=== PATIENT | female | born 1935 | race Caucasian/White ===

== ENCOUNTER 2018-08-15 09:15 | Inpatient (IN) | payer MEDICARE, OTHER ==
[~2018-08-15] VITALS: Ht 154.9 cm; Wt 71.7 kg
[2018-08-15] MEDS ORDERED: aspirin 81mg tab.chew PO ONE (09:45)
[2018-08-15 10:13] LABS: BASOPHILS # (AUTO) 0.1 X10'3 (0-0.2); BASOPHILS % (AUTO) 0.9 % (0-1); EOSINOPHILS # (AUTO) 0.2 X10'3 (0-0.9); EOSINOPHILS % (AUTO) 2.2 % (0-6); HEMOGLOBIN 13.5 g/dl (12.0-16.0); LYMPHOCYTES # (AUTO) 2.5 X10'3 (1.1-4.8); LYMPHOCYTES % (AUTO) 36.6 % (21-51); MEAN CORPUSCULAR HGB CONC 33.7 g/dL (33.0-36.5); MEAN PLATELET VOLUME 8.5 FL (7.4-10.4); MONOCYTES # (AUTO) 0.4 X10'3 (0-0.9); MONOCYTES % (AUTO) 6.4 % (2-12); NEUTROPHILS # (AUTO) 3.8 X10'3 (1.8-7.7); NEUTROPHILS % (AUTO) 53.9 % (42-75); PLATELET COUNT 311 X10'3 (140-440); RED BLOOD COUNT 4.49 X10'6 (4.20-5.60); RED CELL DISTRIBUTION WIDTH 14.7 % (11.5-14.5)
[2018-08-15 10:25] LABS: ALANINE AMINOTRANSFERASE 21 U/L (12-78); ALBUMIN 3.8 G/DL (3.4-5.0); ALBUMIN/GLOBULIN RATIO 0.8 (1.1-1.5); ALKALINE PHOSPHATASE 96 IU/L (46-116); ANION GAP 7 (8-16); BILIRUBIN,TOTAL 0.4 MG/DL (0.1-1.0); BLOOD UREA NITROGEN 10 MG/DL (7-18); BUN/CREATININE RATIO 17.5 (6.6-38.0); CALCIUM 9.5 MG/DL (8.5-10.1); CHLORIDE 106 MMOL/L (99-107); CREATININE 0.57 MG/DL (0.40-0.90); GLUCOSE 97 MG/DL (70-104); SODIUM 140 MMOL/L (135-145); TOTAL CARBON DIOXIDE 26.9 MMOL/L (24-32); TOTAL PROTEIN 8.3 G/DL (6.4-8.2); eGFR > 90 ML/MIN
[2018-08-15 10:28] LABS: ASPARTATE AMINO TRANSFERASE 20 U/L (10-37); POTASSIUM 4.1 MMOL/L (3.5-5.1)
[2018-08-15 10:31] LABS: MAGNESIUM 2.1 MG/DL (1.5-2.4)
[2018-08-15] MEDS ORDERED: diltiazem 5mg/ml 5ml inj. IV ONE ×2 (11:10→11:40)
--- NOTE | 2018-08-15 13:38 | NUR ---
called pharmacy spoke to Sammie re: Shad bailon
[2018-08-15] MEDS ORDERED: NAPR-996 PO (13:54)
[2018-08-15] MEDS ORDERED: ASPI-611 PO (13:54)
[2018-08-15] MEDS ORDERED: B CO1TAB7 PO (13:54)
[2018-08-15] MEDS ORDERED: FAMO20TA8 PO (13:54)
[2018-08-15] MEDS ORDERED: AMLO5TAB PO (13:54)
[2018-08-15] MEDS ORDERED: OXYB5TAB11 PO (13:54)
[2018-08-15] MEDS ORDERED: PRAV40TA3 PO (13:54)
[2018-08-15] MEDS ORDERED: LEVO25TA7 PO (13:54)
[2018-08-15] MEDS: diltiazem-D5W 125mg/125ml 125 ML IV SCH ×2 (13:56→15:14)
[2018-08-15] MEDS ORDERED: potassium Cl 40MEQ/NS 500ml 500 ML IV PRN ×2 (14:25)
[2018-08-15] MEDS ORDERED: ondansetron/PF 4mg/2ml inj IV PRN (14:25)
[2018-08-15] MEDS ORDERED: magnesium 4gm in 100ml NS 100 ML IV PRN (14:25)
[2018-08-15] MEDS ORDERED: magnesium Cl slow-release 64mg tablet PO PRN (14:25)
[2018-08-15] MEDS ORDERED: HYDROcodone/acetaminophen 5mg/325mg tablet PO PRN (14:25)
[2018-08-15] MEDS ORDERED: diltiazem-D5W 125mg/125ml 125 ML IV SCH ×2 (14:25→14:36)
[2018-08-15] MEDS ORDERED: acetaminophen 325mg tablet PO PRN ×2 (14:25)
[2018-08-15] MEDS ORDERED: mag hydrox/Alum hydrox/simeth 30ml oral suspension PO PRN (14:25)
[2018-08-15] MEDS ORDERED: magnesium 2GM in 50ml NS 50 ML IV PRN (14:25)
[2018-08-15] MEDS ORDERED: potassium Cl 20 mEq SR tablet PO PRN ×2 (14:25)
[2018-08-15] MEDS ORDERED: morphine 2 MG/ML inj. syringe IV PRN (14:25)
[2018-08-15] MEDS ORDERED: aminophylline 250mg/10ml inj. IV PRN (14:40)
[2018-08-15] MEDS ORDERED: metoprolol tartrate 1mg/ml inj IV PRN (14:40)
[2018-08-15] MEDS ORDERED: regadenoson 0.4mg/5ml syringe IV PRN (14:40)
[2018-08-15] MEDS ORDERED: nitroGLYCERIN 0.4mg SUBLingual tab SL PRN (14:40)
[2018-08-15] MEDS: normal saline 1000ml 1,000 ML IV SCH (15:15)
--- NOTE | 2018-08-15 15:53 | NUR ---
received pt report from Bryanna JARRETT; all questions answered.
[2018-08-15 16:10] VITALS: BP 106/69
[2018-08-15 16:24] LABS: CHOLESTEROL 134 MG/DL (0-200); HDL CHOLESTEROL 45 MG/DL (35-60); LDL CHOLESTEROL 78 MG/DL (50-100); TRIGLYCERIDES 83 MG/DL (20-135)
[2018-08-15 17:00] VITALS: BP 110/80
[2018-08-15] MEDS ORDERED: sotalol 80mg tablet PO STA (17:44)
[2018-08-15 18:00] VITALS: BP_SYST 106; BP_SYST 108; BP_DIAS 83
--- NOTE | 2018-08-15 18:06 | NUR ---
pt arrived to floor via gurney and ambulated to bed one person assist. VSS. pt oriented to room and call light.
--- NOTE | 2018-08-15 18:10 | NUR ---
Patient in room PCU 3024. I have received report from Mak JARRETT and had the opportunity to ask questions and assume patient care.
--- NOTE | 2018-08-15 18:21 | NUR ---
Problems reprioritized. Patient report given, questions answered & plan of care reviewed with Sergey JARRETT.
[2018-08-15] MEDS: apixaban 5mg tablet PO SCH (19:34)
[2018-08-15] MEDS: docusate sod 100mg capsule PO SCH (19:34)
[2018-08-15] MEDS: sotalol 80mg tablet PO SCH (19:34)
[2018-08-15] MEDS: heparin, porcine 5000 units/ml vial SQ SCH (20:00)
[2018-08-15] MEDS ORDERED: temazepam 15mg capsule PO PRN (21:00)
[2018-08-15 23:00] VITALS: BP 101/56
[2018-08-16] VITALS (14 sets, daily range): BP systolic 76–127; BP diastolic 40–68
[2018-08-16 05:56] LABS: BASOPHILS # (AUTO) 0.1 X10'3 (0-0.2); BASOPHILS % (AUTO) 0.7 % (0-1); EOSINOPHILS # (AUTO) 0.2 X10'3 (0-0.9); EOSINOPHILS % (AUTO) 2.5 % (0-6); HEMATOCRIT 37.4 % (35.0-45.0); HEMOGLOBIN 12.4 g/dl (12.0-16.0); MEAN CORPUSCULAR HEMOGLOBIN 29.5 PG (27.0-31.0); MEAN CORPUSCULAR HGB CONC 33.2 g/dL (33.0-36.5); MEAN CORPUSCULAR VOLUME 88.7 FL (78-98); MEAN PLATELET VOLUME 8.6 FL (7.4-10.4); MONOCYTES # (AUTO) 0.7 X10'3 (0-0.9); MONOCYTES % (AUTO) 8.5 % (2-12); NEUTROPHILS # (AUTO) 3.8 X10'3 (1.8-7.7); NEUTROPHILS % (AUTO) 49.3 % (42-75); PLATELET COUNT 303 X10'3 (140-440); RED BLOOD COUNT 4.22 X10'6 (4.20-5.60); RED CELL DISTRIBUTION WIDTH 14.1 % (11.5-14.5); WHITE BLOOD COUNT 7.7 X10'3 (4.5-11.0)
[2018-08-16 05:59] LABS: ALBUMIN 3.1 G/DL (3.4-5.0); ANION GAP 9 (8-16); BLOOD UREA NITROGEN 11 MG/DL (7-18); BUN/CREATININE RATIO 16.2 (6.6-38.0); CALCIUM 8.9 MG/DL (8.5-10.1); CHLORIDE 107 MMOL/L (99-107); CREATININE 0.68 MG/DL (0.40-0.90); GLUCOSE 93 MG/DL (70-104); POTASSIUM 3.6 MMOL/L (3.5-5.1); SODIUM 140 MMOL/L (135-145); TOTAL CARBON DIOXIDE 23.9 MMOL/L (24-32); eGFR 83 ML/MIN
--- NOTE | 2018-08-16 06:03 | NUR ---
Problems reprioritized. Patient report given, questions answered & plan of care reviewed with Paulo JARRETT.
--- NOTE | 2018-08-16 06:10 | NUR ---
Patient in room PCU 3024. I have received report from KOLBY Rincon and had the opportunity to ask questions and assume patient care.
[2018-08-16] MEDS: apixaban 5mg tablet PO SCH ×2 (07:21→20:32)
[2018-08-16] MEDS: sotalol 80mg tablet PO SCH ×2 (07:21→20:32)
[2018-08-16] MEDS: docusate sod 100mg capsule PO SCH ×2 (07:21→20:32)
[2018-08-16] MEDS: nicotine 14mg patch - 24hr TD SCH (07:21)
[2018-08-16] MEDS: heparin, porcine 5000 units/ml vial SQ SCH ×2 (07:22→20:00)
[2018-08-16] MEDS: K and/or MAG REPLACEMENT MC SCH (07:28)
--- NOTE | 2018-08-16 07:34 | NUR ---
PAGER ID: [phone] MESSAGE: [id number] Amanda Zimmer: HR is 80-90's. No longer RVR afib. Do you want to DC the Cardizem gtt? KOLBY Bates Ext [phone]
[2018-08-16] MEDS ORDERED: diltiazem 30mg tablet PO SCH (08:00)
--- NOTE | 2018-08-16 08:10 | NUR ---
Per Dr Meeks as reported by Dr Hills when they spoke. Dr Hills said to DC cardizem gtt and patient doesn't need PO cardizem.
[2018-08-16] MEDS ORDERED: regadenoson 0.4mg/5ml syringe IV ONE (08:39)
[2018-08-16] MEDS ORDERED: aminophylline inj. 10 ML IV ONE (08:39)
[2018-08-16] MEDS: normal saline 1000ml 1,000 ML IV SCH (10:36)
[2018-08-16] MEDS: diltiazem CD 120mg capsule (once-daily) PO SCH (14:23)
--- NOTE | 2018-08-16 18:00 | NUR ---
Patient in room PCU 3024. I have received report from Paulo JARRETT and had the opportunity to ask questions and assume patient care.
--- NOTE | 2018-08-16 18:16 | NUR ---
Problems reprioritized. Patient report given, questions answered & plan of care reviewed with KOLBY Rincon.
--- NOTE | 2018-08-16 18:21 | NUR ---
PAGER ID: [phone] MESSAGE: [id number]-[email or web address]. Pt. asking about a home med. Can I restart her Oxybutynin? Sergey JARRETT [phone] or [phone]
[2018-08-16] MEDS: oxybutynin 5mg tablet PO SCH (20:32)
[2018-08-17 03:00] VITALS: BP 105/66
[2018-08-17 05:15] LABS: ALBUMIN 3.1 G/DL (3.4-5.0); ANION GAP 6 (8-16); BLOOD UREA NITROGEN 11 MG/DL (7-18); CALCIUM 8.9 MG/DL (8.5-10.1); CHLORIDE 110 MMOL/L (99-107); CREATININE 0.58 MG/DL (0.40-0.90); GLUCOSE 104 MG/DL (70-104); POTASSIUM 3.8 MMOL/L (3.5-5.1); SODIUM 141 MMOL/L (135-145); TOTAL CARBON DIOXIDE 25.1 MMOL/L (24-32); eGFR > 90 ML/MIN
[2018-08-17 05:20] LABS: BASOPHILS # (AUTO) 0.1 X10'3 (0-0.2); BASOPHILS % (AUTO) 1.1 % (0-1); EOSINOPHILS # (AUTO) 0.1 X10'3 (0-0.9); EOSINOPHILS % (AUTO) 2.1 % (0-6); HEMATOCRIT 36.1 % (35.0-45.0); HEMOGLOBIN 12.3 g/dl (12.0-16.0); LYMPHOCYTES # (AUTO) 3.4 X10'3 (1.1-4.8); LYMPHOCYTES % (AUTO) 49.1 % (21-51); MEAN CORPUSCULAR HEMOGLOBIN 30.3 PG (27.0-31.0); MEAN CORPUSCULAR HGB CONC 34.1 g/dL (33.0-36.5); MEAN CORPUSCULAR VOLUME 88.8 FL (78-98); MEAN PLATELET VOLUME 8.9 FL (7.4-10.4); MONOCYTES # (AUTO) 0.5 X10'3 (0-0.9); MONOCYTES % (AUTO) 7.9 % (2-12); NEUTROPHILS # (AUTO) 2.7 X10'3 (1.8-7.7); NEUTROPHILS % (AUTO) 39.8 % (42-75); PLATELET COUNT 267 X10'3 (140-440); RED BLOOD COUNT 4.06 X10'6 (4.20-5.60); RED CELL DISTRIBUTION WIDTH 14.3 % (11.5-14.5); WHITE BLOOD COUNT 6.8 X10'3 (4.5-11.0)
--- NOTE | 2018-08-17 06:44 | NUR ---
Problems reprioritized. Patient report given, questions answered & plan of care reviewed with Dorothy JARRETT.
[2018-08-17 07:00] VITALS: BP 117/60
--- NOTE | 2018-08-17 07:10 | NUR ---
Patient in room PCU 3023. I have received report from KOLBY Rincon and had the opportunity to ask questions and assume patient care.
[2018-08-17] MEDS: K and/or MAG REPLACEMENT MC SCH (08:00)
[2018-08-17] MEDS: apixaban 5mg tablet PO SCH (09:11)
[2018-08-17] MEDS: sotalol 80mg tablet PO SCH (09:11)
[2018-08-17] MEDS: oxybutynin 5mg tablet PO SCH ×2 (09:11→14:35)
[2018-08-17] MEDS: diltiazem CD 120mg capsule (once-daily) PO SCH (09:11)
[2018-08-17] MEDS: docusate sod 100mg capsule PO SCH (09:12)
[2018-08-17] MEDS: nicotine 14mg patch - 24hr TD SCH (09:12)
[2018-08-17] MEDS: heparin, porcine 5000 units/ml vial SQ SCH (09:13)
[2018-08-17] MEDS: normal saline 1000ml 1,000 ML IV SCH (09:22)
[2018-08-17] MEDS ORDERED: diltiazem CD 120mg capsule (once-daily) PO ONE (10:05)
[2018-08-17 11:00] VITALS: BP 116/68
--- NOTE | 2018-08-17 11:52 | NUR ---
PAGER ID: [phone] MESSAGE: [id number] pt Goran SANTORO manual BP 114/68, automatic 117/69. Pulse currently 97, O2 98% on RA. Thank you.
[2018-08-17 11:53] VITALS: BP 114/68
[2018-08-17] MEDS ORDERED: APIX5TAB3 PO (13:41)
[2018-08-17] MEDS ORDERED: SOTA80TA73 PO (13:41)
[2018-08-17] MEDS ORDERED: CARCD120C PO (13:41)
[2018-08-17] MEDS ORDERED: NICO-631 TD (13:41)
--- NOTE | 2018-08-17 15:01 | NUR ---
Patient discharged in stable condition in no apparent distress with family and belongings at side. IV and wrist band taken out/off. Patient taken via wheelchair to transportation by staff. Prescriptions called into [facility] on [address], [place]
== END 2018-08-17 15:00 | disposition home or self-care (01) | DRG 310 ==
LOC: ER 09:15 → PCU 3S 16:22
PROVIDERS: ADMIT Internal Medicine; ATTEND Family Medicine
PROC: 4A02XM4 Measurement of Cardiac Total Activity, External Approach (ICD-10-PCS; principal; 2018-08-16)
PROC: 3E033HZ Introduction of Radioactive Substance into Peripheral Vein, Percutaneous Approach (ICD-10-PCS; 2018-08-16)
DX: I48.91 Unspecified atrial fibrillation (principal); E03.9 Hypothyroidism, unspecified; E78.00 Pure hypercholesterolemia, unspecified; E78.5 Hyperlipidemia, unspecified; F17.210 Nicotine dependence, cigarettes, uncomplicated; I10 Essential (primary) hypertension; E66.3 Overweight; I25.10 Atherosclerotic heart disease of native coronary artery without angina pectoris; H91.90 Unspecified hearing loss, unspecified ear; M79.672 Pain in left foot; R00.0 Tachycardia, unspecified; F41.9 Anxiety disorder, unspecified; J44.9 Chronic obstructive pulmonary disease, unspecified; K21.9 Gastro-esophageal reflux disease without esophagitis; Z79.899 Other long term (current) drug therapy; Z90.710 Acquired absence of both cervix and uterus; Z71.6 Tobacco abuse counseling; Z82.49 Family history of ischemic heart disease and other diseases of the circulatory system; Z79.82 Long term (current) use of aspirin; Z68.29 Body mass index [BMI] 29.0-29.9, adult
CPT/HCPCS: 36415; 71045; 78452; 80048; 80053; 80061; 83735; 83880; 84443; 84484; 85025; 87070; 93005; 93017; 93306; 96365; 96366; 96376; 99285; A9500; G0378; J0280; J1644; J3490; J7030

== ENCOUNTER 2018-11-05 13:23 | Emergency (ER) | payer MEDICARE, OTHER ==
[~2018-11-05] VITALS: Ht 154.9 cm; Wt 69.5 kg
[~2018-11-05 13:23] MED LIST: APIX5TAB3 PO; ASPI-611 PO; B CO1TAB7 PO; CARCD120C PO; FAMO20TA8 PO; LEVO25TA7 PO; NICO-631 TD; OXYB5TAB16 PO; PRAV40TA3 PO; SOTA80TA73 PO
[2018-11-05 13:57] LABS: BASOPHILS # (AUTO) 0.1 X10'3 (0-0.2); EOSINOPHILS # (AUTO) 0.2 X10'3 (0-0.9); EOSINOPHILS % (AUTO) 1.9 % (0-6); HEMATOCRIT 40.9 % (35.0-45.0); HEMOGLOBIN 13.3 g/dl (12.0-16.0); LYMPHOCYTES # (AUTO) 3.1 X10'3 (1.1-4.8); LYMPHOCYTES % (AUTO) 35.9 % (21-51); MEAN CORPUSCULAR HEMOGLOBIN 29.1 PG (27.0-31.0); MEAN CORPUSCULAR HGB CONC 32.5 g/dL (33.0-36.5); MEAN CORPUSCULAR VOLUME 89.5 FL (78-98); MEAN PLATELET VOLUME 8.9 FL (7.4-10.4); MONOCYTES # (AUTO) 0.7 X10'3 (0-0.9); MONOCYTES % (AUTO) 7.6 % (2-12); NEUTROPHILS # (AUTO) 4.6 X10'3 (1.8-7.7); NEUTROPHILS % (AUTO) 53.6 % (42-75); PLATELET COUNT 279 X10'3 (140-440); RED BLOOD COUNT 4.57 X10'6 (4.20-5.60); WHITE BLOOD COUNT 8.6 X10'3 (4.5-11.0)
[2018-11-05] MEDS ORDERED: PARO10TA85 PO (14:00)
[2018-11-05] MEDS ORDERED: DONE10TA44 PO (14:05)
[2018-11-05] MEDS ORDERED: SOTA80TA73 PO (14:05)
[2018-11-05] MEDS ORDERED: DILT120T3 PO (14:05)
[2018-11-05] MEDS ORDERED: PANT40TA4 PO (14:05)
[2018-11-05 14:06] LABS: ALANINE AMINOTRANSFERASE 28 U/L (12-78); ALBUMIN 3.8 G/DL (3.4-5.0); ALKALINE PHOSPHATASE 89 IU/L (46-116); ANION GAP 8 (8-16); ASPARTATE AMINO TRANSFERASE 23 U/L (10-37); BILIRUBIN,TOTAL 0.3 MG/DL (0.1-1.0); BLOOD UREA NITROGEN 18 MG/DL (7-18); BUN/CREATININE RATIO 19.4 (6.6-38.0); CALCIUM 8.9 MG/DL (8.5-10.1); CHLORIDE 104 MMOL/L (99-107); CREATININE 0.93 MG/DL (0.40-0.90); GLUCOSE 143 MG/DL (70-104); POTASSIUM 4.1 MMOL/L (3.5-5.1); SODIUM 137 MMOL/L (135-145); TOTAL CARBON DIOXIDE 24.6 MMOL/L (24-32); TOTAL PROTEIN 7.7 G/DL (6.4-8.2); eGFR 58 ML/MIN
[2018-11-05 14:07] LABS: PARTIAL THROMBOPLASTIN TIME 30 SECONDS (22-32)
[2018-11-05 14:15] VITALS: BP 161/80
--- NOTE | 2018-11-05 14:35 | NUR ---
Pt returned from restroom, ambulating without assistance. Pt denies dizziness, weakness.
== END 2018-11-05 15:03 | disposition home or self-care (01) ==
LOC: ER 13:23
DX: R00.1 Bradycardia, unspecified (principal); I48.91 Unspecified atrial fibrillation; E78.00 Pure hypercholesterolemia, unspecified; I10 Essential (primary) hypertension; F41.9 Anxiety disorder, unspecified; Z90.710 Acquired absence of both cervix and uterus; Z98.890 Other specified postprocedural states; Z88.8 Allergy status to other drugs, medicaments and biological substances; Z79.82 Long term (current) use of aspirin; Z79.899 Other long term (current) drug therapy
CPT/HCPCS: 36415; 71045; 80053; 83880; 84484; 85025; 85610; 85730; 93005; 99284

== ENCOUNTER 2018-12-28 13:31 | Emergency (ER) | payer MEDICARE, OTHER ==
[~2018-12-28] VITALS: Ht 154.9 cm; Wt 71.8 kg
[~2018-12-28 13:31] MED LIST changes: -ASPI-611 PO; -CARCD120C PO; +DILT120T3 PO; +DONE10TA44 PO; -FAMO20TA8 PO; -NICO-631 TD; +PANT40TA4 PO; +PARO10TA85 PO
[2018-12-28 14:17] LABS: BASOPHILS # (AUTO) 0.1 X10'3 (0-0.2); BASOPHILS % (AUTO) 0.8 % (0-1); EOSINOPHILS # (AUTO) 0.1 X10'3 (0-0.9); EOSINOPHILS % (AUTO) 0.9 % (0-6); HEMATOCRIT 42.1 % (35.0-45.0); HEMOGLOBIN 14.2 g/dl (12.0-16.0); LYMPHOCYTES # (AUTO) 3.1 X10'3 (1.1-4.8); LYMPHOCYTES % (AUTO) 30.1 % (21-51); MEAN CORPUSCULAR HEMOGLOBIN 29.4 PG (27.0-31.0); MEAN CORPUSCULAR HGB CONC 33.6 g/dL (33.0-36.5); MEAN CORPUSCULAR VOLUME 87.5 FL (78-98); MEAN PLATELET VOLUME 8.6 FL (7.4-10.4); MONOCYTES # (AUTO) 0.6 X10'3 (0-0.9); MONOCYTES % (AUTO) 6.2 % (2-12); NEUTROPHILS # (AUTO) 6.4 X10'3 (1.8-7.7); PLATELET COUNT 272 X10'3 (140-440); RED BLOOD COUNT 4.81 X10'6 (4.20-5.60); RED CELL DISTRIBUTION WIDTH 14.6 % (11.5-14.5); WHITE BLOOD COUNT 10.3 X10'3 (4.5-11.0)
[2018-12-28 14:29] LABS: PARTIAL THROMBOPLASTIN TIME 28 SECONDS (22-32)
[2018-12-28 14:31] LABS: ALANINE AMINOTRANSFERASE 20 U/L (12-78); ALBUMIN 3.8 G/DL (3.4-5.0); ALKALINE PHOSPHATASE 74 IU/L (46-116); ANION GAP 6 (8-16); ASPARTATE AMINO TRANSFERASE 15 U/L (10-37); BILIRUBIN,TOTAL 0.5 MG/DL (0.1-1.0); BLOOD UREA NITROGEN 15 MG/DL (7-18); BUN/CREATININE RATIO 18.5 (6.6-38.0); CALCIUM 9.2 MG/DL (8.5-10.1); CHLORIDE 104 MMOL/L (99-107); CREATININE 0.81 MG/DL (0.40-0.90); GLUCOSE 92 MG/DL (70-104); POTASSIUM 4.1 MMOL/L (3.5-5.1); SODIUM 139 MMOL/L (135-145); TOTAL CARBON DIOXIDE 29.2 MMOL/L (24-32); TOTAL PROTEIN 7.6 G/DL (6.4-8.2); eGFR 68 ML/MIN
--- NOTE | 2018-12-28 14:34 | NUR ---
malina naidu aware of heart rate down to 45 ans sbp 203
[2018-12-28] MEDS ORDERED: sucralfate 1gm/10ml UD suspension PO ONE (16:00)
[2018-12-28] MEDS ORDERED: LIDOcaine Viscous 15ml cup PO ONE (16:00)
[2018-12-28] MEDS ORDERED: mag hydrox/Alum hydrox/simeth 30ml oral suspension PO ONE (16:00)
[2018-12-28] MEDS ORDERED: SUCR1TAB34 PO (17:39)
[2018-12-28 18:20] VITALS: BP 167/72
== END 2018-12-28 18:23 | disposition home or self-care (01) ==
LOC: ER 13:31
DX: R10.13 Epigastric pain (principal); R07.89 Other chest pain; I48.91 Unspecified atrial fibrillation; E78.00 Pure hypercholesterolemia, unspecified; I10 Essential (primary) hypertension; F41.9 Anxiety disorder, unspecified; Z90.710 Acquired absence of both cervix and uterus; Z98.890 Other specified postprocedural states; Z79.899 Other long term (current) drug therapy
CPT/HCPCS: 36415; 71045; 80053; 84484; 85025; 85610; 85730; 93005; 99284

== ENCOUNTER 2019-06-10 14:03 | Outpatient (CLI) | payer MEDICARE, OTHER ==
[~2019-06-10 14:03] MED LIST changes: +SUCR1TAB34 PO
== END 2019-06-10 23:59 | disposition home or self-care (01) ==
LOC: RAD 14:03
PROVIDERS: ATTEND Nurse Practitioner Family
DX: R13.19 Other dysphagia (principal); K21.9 Gastro-esophageal reflux disease without esophagitis
CPT/HCPCS: 74230

== ENCOUNTER → 2020-02-12 | Emergency (ER) | payer MEDICARE, OTHER ==
[~2020-02-12] VITALS: Ht 154.9 cm; Wt 77.0 kg
[~2020-02-12] MED LIST changes: +HYDR-4383 PO; +HYDROcodone/acetaminophen 5mg/325mg tablet PO ONE; -PANT40TA4 PO; +PANT40TA54 PO; +morphine 4 MG/ML inj SYRINge IV ONE
--- NOTE | 2020-02-12 16:00 | NUR ---
back from xray
[2020-02-12 17:20] VITALS: BP 192/81
== END | disposition home or self-care (01) ==
LOC: ER 14:59
DX: S09.90XA Unspecified injury of head, initial encounter (principal); M79.605 Pain in left leg; M25.562 Pain in left knee; I48.91 Unspecified atrial fibrillation; E78.00 Pure hypercholesterolemia, unspecified; I10 Essential (primary) hypertension; F41.9 Anxiety disorder, unspecified; Z90.710 Acquired absence of both cervix and uterus; Z98.890 Other specified postprocedural states; Z79.899 Other long term (current) drug therapy; W19.XXXA Unspecified fall, initial encounter; Y93.89 Activity, other specified; Y92.89 Other specified places as the place of occurrence of the external cause; Y99.8 Other external cause status
CPT/HCPCS: 70450; 73502; 73560; 96374; 99285; J2270; 99284

== ENCOUNTER 2020-02-21 12:20 | Emergency (ER) | payer MEDICARE, OTHER ==
[~2020-02-21] VITALS: Ht 154.9 cm; Wt 76.0 kg
[~2020-02-21 12:20] MED LIST changes: -HYDROcodone/acetaminophen 5mg/325mg tablet PO ONE; -morphine 4 MG/ML inj SYRINge IV ONE
[2020-02-21] MEDS ORDERED: normal saline 1000ML IV soln IVB ONE (13:05)
[2020-02-21] MEDS ORDERED: proCHLORperazine 10 MG/2 ml inj IV ONE (13:05)
[2020-02-21 13:06] LABS: BASOPHILS % (AUTO) 0.2 % (0-1); EOSINOPHILS % (AUTO) 0 % (0-6); HEMATOCRIT 39.2 % (35.0-45.0); HEMOGLOBIN 13.2 g/dl (12.0-16.0); LYMPHOCYTES # (AUTO) 1.5 X10'3 (1.1-4.8); LYMPHOCYTES % (AUTO) 15.8 % (21-51); MEAN CORPUSCULAR HEMOGLOBIN 29.9 PG (27.0-31.0); MEAN CORPUSCULAR HGB CONC 33.6 g/dL (33.0-36.5); MEAN CORPUSCULAR VOLUME 88.9 FL (78-98); MONOCYTES # (AUTO) 0.2 X10'3 (0-0.9); MONOCYTES % (AUTO) 1.9 % (2-12); NEUTROPHILS # (AUTO) 7.6 X10'3 (1.8-7.7); NEUTROPHILS % (AUTO) 82.1 % (42-75); PLATELET COUNT 248 X10'3 (140-440); RED BLOOD COUNT 4.41 X10'6 (4.20-5.60); RED CELL DISTRIBUTION WIDTH 13.6 % (11.5-14.5); WHITE BLOOD COUNT 9.3 X10'3 (4.5-11.0)
[2020-02-21 13:20] LABS: ALANINE AMINOTRANSFERASE 20 U/L (12-78); ALBUMIN 4.1 G/DL (3.4-5.0); ALKALINE PHOSPHATASE 79 IU/L (46-116); ANION GAP 11 (8-16); ASPARTATE AMINO TRANSFERASE 16 U/L (10-37); BILIRUBIN,TOTAL 0.8 MG/DL (0.1-1.0); BLOOD UREA NITROGEN 15 MG/DL (7-18); BUN/CREATININE RATIO 21.4 (6.6-38.0); CHLORIDE 91 MMOL/L (99-107); GLUCOSE 134 MG/DL (70-104); LIPASE < 50 U/L (73-393); SODIUM 125 MMOL/L (135-145); TOTAL CARBON DIOXIDE 23.4 MMOL/L (24-32); TOTAL PROTEIN 8.2 G/DL (6.4-8.2); eGFR 80 ML/MIN
[2020-02-21 14:36] LABS: CLARITY,URINE SLIGHTLY CLOUDY (Clear); COLOR,URINE YELLOW (Yellow); GLUCOSE, URINE NEGATIVE (Neg); KETONES,URINE 40 mg/dl (Neg); LEUKOCYTE ESTERASE ,URINE NEGATIVE (Neg); NITRITES, URINE NEGATIVE (Neg); OCCULT BLOOD,URINE NEGATIVE (Neg); PH,URINE 7.5 (4.8-8.0); PROTEIN,URINE 30 mg/dl (Neg); UA COLLECTION TYPE CLN CATCH MIDSTREAM; UROBILINOGEN,URINE 0.2 E.U/dL (0.2-1.0)
[2020-02-21 14:41] LABS: AMORPHOUS PHOSPHATES 1+; BACTERIA,URINE NONE SEEN /HPF (Neg); MUCUS STRANDS FEW /LPF (Neg); RBC,URINE NONE SEEN /HPF (0-2); SQUAMOUS EPITHELIAL CELL,UR NONE SEEN /LPF (FEW); WBC,URINE 0-4 /HPF (0-4)
--- NOTE | 2020-02-21 15:42 | NUR ---
Spoke with Itm, pt's son regarding pt's discharge. He is about 20 minutes away, but will head this direction now.
[2020-02-21 16:08] VITALS: BP 155/86
== END 2020-02-21 16:10 | disposition home or self-care (01) ==
LOC: ER 12:20
DX: K52.9 Noninfective gastroenteritis and colitis, unspecified (principal); R11.2 Nausea with vomiting, unspecified; R10.13 Epigastric pain; I48.91 Unspecified atrial fibrillation; E78.00 Pure hypercholesterolemia, unspecified; I10 Essential (primary) hypertension; F41.9 Anxiety disorder, unspecified; Z90.710 Acquired absence of both cervix and uterus; Z98.890 Other specified postprocedural states; Z79.899 Other long term (current) drug therapy
CPT/HCPCS: 36415; 71045; 74176; 80053; 81001; 83690; 84484; 85025; 96361; 96374; 99285; J0780; J7030

== ENCOUNTER 2021-03-27 12:17 | Emergency (ER) | payer MEDICARE, OTHER ==
[~2021-03-27] VITALS: Ht 154.9 cm; Wt 77.3 kg
[2021-03-27 13:33] LABS: BASOPHILS # (AUTO) 0.1 X10'3 (0-0.2); BASOPHILS % (AUTO) 0.8 % (0-1); EOSINOPHILS # (AUTO) 0.6 X10'3 (0-0.9); EOSINOPHILS % (AUTO) 8.7 % (0-6); LYMPHOCYTES # (AUTO) 2.2 X10'3 (1.1-4.8); LYMPHOCYTES % (AUTO) 33.7 % (21-51); MEAN CORPUSCULAR HGB CONC 33.2 g/dL (33.0-36.5); MEAN CORPUSCULAR VOLUME 90.4 FL (78-98); MEAN PLATELET VOLUME 8.8 FL (7.4-10.4); MONOCYTES # (AUTO) 0.6 X10'3 (0-0.9); MONOCYTES % (AUTO) 8.9 % (2-12); NEUTROPHILS # (AUTO) 3.1 X10'3 (1.8-7.7); NEUTROPHILS % (AUTO) 47.9 % (42-75); PLATELET COUNT 273 X10'3 (140-440); RED BLOOD COUNT 3.98 X10'6 (4.20-5.60); RED CELL DISTRIBUTION WIDTH 14.5 % (11.5-14.5); WHITE BLOOD COUNT 6.5 X10'3 (4.5-11.0)
[2021-03-27 13:40] LABS: CLARITY,URINE SLIGHTLY CLOUDY (Clear); GLUCOSE, URINE NEGATIVE (Neg); KETONES,URINE NEGATIVE (Neg); LEUKOCYTE ESTERASE ,URINE NEGATIVE (Neg); NITRITES, URINE NEGATIVE (Neg); OCCULT BLOOD,URINE NEGATIVE (Neg); PH,URINE 5.5 (4.8-8.0); PROTEIN,URINE NEGATIVE (Neg); UROBILINOGEN,URINE 0.2 E.U/dL (0.2-1.0)
[2021-03-27 13:45] LABS: ALANINE AMINOTRANSFERASE 22 U/L (12-78); ALBUMIN 3.6 G/DL (3.4-5.0); ALBUMIN/GLOBULIN RATIO 0.8 (1.1-1.5); ALKALINE PHOSPHATASE 80 IU/L (46-116); ANION GAP 8 (8-16); ASPARTATE AMINO TRANSFERASE 13 U/L (10-37); BILIRUBIN,TOTAL 0.4 MG/DL (0.1-1.0); BLOOD UREA NITROGEN 20 MG/DL (7-18); BUN/CREATININE RATIO 22.5 (6.6-38.0); CALCIUM 9.3 MG/DL (8.5-10.1); CHLORIDE 104 MMOL/L (99-107); CREATININE 0.89 MG/DL (0.40-0.90); GLUCOSE 90 MG/DL (70-104); POTASSIUM 3.8 MMOL/L (3.5-5.1); SODIUM 140 MMOL/L (135-145); TOTAL CARBON DIOXIDE 28.5 MMOL/L (24-32); TOTAL PROTEIN 7.9 G/DL (6.4-8.2); eGFR 61 ML/MIN
[2021-03-27 13:47] LABS: COLOR,URINE STRAW (Yellow); UA COLLECTION TYPE CLN CATCH MIDSTREAM
[2021-03-27 13:48] LABS: SQUAMOUS EPITHELIAL CELL,UR MODERATE /LPF (FEW)
[2021-03-27 13:48] LABS: LIPASE 60 U/L (73-393)
[2021-03-27 13:49] LABS: BACTERIA,URINE FEW /HPF (Neg); RBC,URINE NONE SEEN /HPF (0-2); WBC,URINE 0-4 /HPF (0-4)
[2021-03-27 19:55] VITALS: BP 172/78
== END 2021-03-27 19:57 | disposition home or self-care (01) ==
LOC: ER 12:17
DX: R10.9 Unspecified abdominal pain (principal); K59.00 Constipation, unspecified; I48.91 Unspecified atrial fibrillation; E78.00 Pure hypercholesterolemia, unspecified; I10 Essential (primary) hypertension; Z90.710 Acquired absence of both cervix and uterus; Z79.899 Other long term (current) drug therapy
CPT/HCPCS: 36415; 74176; 80053; 81001; 83690; 84484; 85025; 93005; 99285

== ENCOUNTER 2021-05-19 15:26 | Outpatient (CLI) | payer MEDICARE, OTHER ==
[~2021-05-19 15:26] MED LIST changes: -APIX5TAB3 PO; -B CO1TAB7 PO; -DILT120T3 PO; +FAMO40TA7 PO; +HYDR-3972 PO; -HYDR-4383 PO; +LISI10TA27 PO; -PANT40TA54 PO; -PARO10TA85 PO; -PRAV40TA3 PO; -SUCR1TAB34 PO
== END 2021-05-19 23:59 | disposition home or self-care (01) ==
LOC: LAB SPEC 15:26
PROVIDERS: ATTEND Orthopaedic Surgery
DX: T14.8XXD Other injury of unspecified body region, subsequent encounter (principal); X58.XXXD Exposure to other specified factors, subsequent encounter
CPT/HCPCS: 87070

== ENCOUNTER 2025-01-21 08:22 | Outpatient (CLI) | payer MEDICARE, MEDICAID ==
[~2025-01-21 08:22] MED LIST changes: -OXYB5TAB16 PO; +OXYB5TAB21 PO
--- NOTE | 2025-01-21 10:04 | RADIOLOGY REPORT ---
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 COMPARISON: CT ABDOMEN PELVIS on DOS: 03/27/21, CT ABDOMEN PELVIS on DOS: 02/21/20 FINDINGS: The liver is normal in echogenicity with no focal parenchymal abnormality. The liver measures 14.9 cm in length. The common duct is 3 mm. Gallbladder demonstrates no shadowing stone or tenderness. There is a 5 mm polyp. There is a questionable 1.3 cm polyp. There is mild gallbladder wall thickening measuring 4.5 mm. The pancreas is not well seen. No ascites or fluid collection. The right kidney is 9.6 cm and the left kidney is 10.8 cm. No hydronephrosis, increased echogenicity, shadowing stone, or focal lesion. Spleen is within normal limits. The aorta and IVC are normal caliber and patent. IMPRESSION: Questionable 1.3 cm gallbladder polyp. Recommend MRI/ MRCP with and without IV contrast for better evaluation. Mild nonspecific gallbladder wall thickening.
== END 2025-01-21 23:59 | disposition home or self-care (01) ==
LOC: RAD 08:22
PROVIDERS: ATTEND Nurse Practitioner Family
DX: K82.8 Other specified diseases of gallbladder (principal); K21.9 Gastro-esophageal reflux disease without esophagitis; R10.10 Upper abdominal pain, unspecified
CPT/HCPCS: 76700